=== PATIENT | female | born 1995 | race Caucasian/White ===

== ENCOUNTER → 2016-10-20 | Outpatient (CLI) | payer OTHER ==
--- NOTE | 2016-10-20 16:02 | REP ---
ULTRASOUND LEFT BREAST: Ultrasound left breast is performed in the region of 3 o'clock at the site of the reported palpable abnormality. At that location there is an oval hypoechoic nodule which is wider than tall, measuring 1.3 x 0.6 x 1.2 cm. It is very well defined and smoothly marginated. This probably represents a fibroadenoma. IMPRESSION: ACR 3 probably benign. At the site of the reported palpable abnormality 3 o'clock left breast is an oval well defined hypoechoic nodule which most likely represents a fibroadenoma. Recommend followup ultrasound in 6 months. Signed by Nico Ram MD 10/20/2016 07:28 P
== END ==
LOC: M RAD 14:52
PROVIDERS: ATTEND Physician Assistant
DX: N63 Unspecified lump in breast (principal); Z80.3 Family history of malignant neoplasm of breast

== ENCOUNTER → 2018-03-12 | Outpatient (CLI) | payer OTHER ==
[2018-03-12 23:04] LABS: CHLAMYDIA DNA AMPLIFICATION NEGATIVE (NEGATIVE); GC DNA AMPLIFICATION NEGATIVE (NEGATIVE)
[2018-03-14 11:17] LABS: HIV 1&2 SCREEN CENTAUR NEGATIVE (NEGATIVE)
== END ==
LOC: M WUC 12:55
DX: R10.30 Lower abdominal pain, unspecified (principal)
CPT/HCPCS: 36415

== ENCOUNTER → 2018-06-21 | Outpatient (CLI) | payer OTHER ==
--- NOTE | 2018-06-21 19:11 | REP ---
LEFT BREAST ULTRASOUND: 06/21/2018. Clinical history: 23 year-old female with palpable left breast lump. [facility] states ultrasound in 2017 defined ACR 3 probably benign lump. Most likely a fibroadenoma. I do not have images report or size of the original finding. She has a family history of maternal aunt, grandmother and mother all with breast cancer and her mother diagnosis in her 40s. Sonographic evaluation of the left breast in the region of the palpable finding about 2-o'clock to 3 o'clock upper outer quadrant shows a solid mass 2.4 x 2.7 x 1.6 cm and another 9 x 5 by 8 mm hypoechoic focus. These are about 7 cm from the nipple. There is through transmission and color flow with both. At the 3 o'clock position, there is another hypoechoic solid lesion 4.5 cm from the nipple and measuring 1.4 x 1.2 x 0.9 cm. Color flow and Doppler tracings are seen in these lesions. Some through transmission is noted. The underlying tissue is heterogeneously echogenic. Impression: 1. BIRADS ACR category 4 suspicious, suspicious finding. A biopsy should be considered. Although these most likely represent fibroadenomas, sonography is not a tissue specific diagnostic modality and size over 2 cm for the largest of these lesions places this in a category of somewhat higher risk. An ultrasound-guided needle biopsy of this large lesion would be able to give a pathologic diagnosis. If the lesion is enlarging, and excisional biopsy might be an option. Comparison to any priors if they became available might be helpful but by size alone I still recommend needle biopsy of the largest of these lesions. Given her significant family history, mammography screening may begin 10 years before the age of her mother at her diagnosis of breast cancer. Electronically Signed by Alex Purvis MD 06/21/2018 08:01 P
== END ==
LOC: M RAD 14:51
PROVIDERS: ATTEND Student in an Organized Health Care Education/Training Program
DX: N63.21 Unspecified lump in the left breast, upper outer quadrant (principal)